=== PATIENT | female | born 1985 | race Caucasian/White ===

== ENCOUNTER 2017-07-25 22:31 | Emergency (ER) | payer OTHER ==
[~2017-07-25] VITALS: Ht 170.2 cm; Wt 65.8 kg
[2017-07-25] MEDS ORDERED: ZOLOFT100 MG (23:09)
[2017-07-26] MEDS ORDERED: KETO10TA2 PO (01:13)
== END 2017-07-26 01:30 | disposition home or self-care (01) ==
LOC: ER 22:31
DX: M79.672 Pain in left foot (principal)

== ENCOUNTER → 2017-07-26 | Emergency (ER) | payer BC ==
[~2017-07-26] VITALS: Ht 170.2 cm; Wt 65.8 kg
[~2017-07-26] MED LIST: KETO10TA2 PO; ZOLOFT100 MG
== END | disposition left against medical advice (07) ==
LOC: ER 11:46
DX: Z53.20 Procedure and treatment not carried out because of patient's decision for unspecified reasons (principal)